=== PATIENT | male | born 1995 | race Caucasian/White ===

== ENCOUNTER 2017-05-20 14:50 | Emergency (ER) | payer SELFPAY ==
[2017-05-20] MEDS ORDERED: oxyCODONE/Acetamin 5/325 MG* TAB PO ONE (17:02)
[2017-05-20] MEDS ORDERED: oxyCODONE/Acetamin 5/325 MG* TAB ONE (17:04)
[2017-05-20 17:57] VITALS: BP 124/66
--- NOTE | 2017-05-20 19:00 | ED ---
Pino Barillas Elizabeth, scribed for Filipe Eden on 05/20/17 at 1701 . GI/ HPI - HPI Summary HPI Summary: The patient is a 21 year old male complaining of hemorrhoids for the last 6 days. Patient has tried using hemorrhoid cream and baking soda baths to alleviate the pain but says it has not helped. Patient has a history of hemorrhoids but says that they usually do not last this long and are not usually that painful. - History of Current Complaint Chief Complaint: EDRashSkinAbscess Time Seen by Provider: 05/20/17 16:47 Stated Complaint: POSSIBLE HEMORRHOID-7 DAYS Hx Obtained From: Patient Onset/Duration: Started Days Ago - started 6 days ago, Still Present Timing: Constant, Lasting Days Severity: Moderate Current Severity: Moderate Pain Intensity: 10 Location of Pain: Rectal Associated Signs and Symptoms: Positive: External Hemorrhoids Aggravating Factor(s): Movement - sitting Alleviating Factor(s): Nothing - Allergy/Home Medications Allergies/Adverse Reactions: Allergies Allergy/AdvReac Type Severity Reaction Status Date / Time No Known Allergies Allergy Verified 03/21/15 07:36 PMH/Surg Hx/FS Hx/Imm Hx GI History: Reports: Other GI Disorders - hemorrhoids EENT History: Denies: Hx Deafness Infectious Disease History: No Infectious Disease History: Denies: Traveled Outside the [place] in Last 30 Days - Family History Known Family History: Positive: Unknown - Social History Alcohol Use: Occasionally Substance Use Type: Reports: Marijuana Substance Use Comment - Amount & Last Used: every day Smoking Status (MU): Current Every Day Smoker Amount Used/How Often: < 1/2ppd Have You Smoked in the Last Year: Yes - smokes marijuana Review of Systems Negative: Epistaxis Positive: pain, other - hemorrhoids All Other Systems Reviewed And Are Negative: Yes Physical Exam - Summary Physical Exam Summary: Appearance: Well appearing, no pain distress Skin: warm, dry, reflects adequate perfusion Head/face: normal Eyes: EOMI, ZEYNEP ENT: normal Neck: supple, non-tender Respiratory: CTA, breath sounds present Cardiovascular: RRR, pulses symmetrical Abdomen: non-tender, soft Bowel: present, tender external hemorrhoids Musculoskeletal: normal, strength/ROM intact Neuro: normal, sensory motor intact, A&Ox3 Triage Information Reviewed: Yes Vital Signs On Initial Exam: Initial Vitals Temp Pulse Resp BP Pulse Ox 99.3 F 85 14 130/66 98 05/20/17 15:11 05/20/17 15:11 05/20/17 15:11 05/20/17 15:11 05/20/17 15:11 Vital Signs Reviewed: Yes Diagnostics - Vital Signs Vital Signs Temp Pulse Resp BP Pulse Ox 05/20/17 15:11 99.3 F 85 14 130/66 98 - Laboratory Lab Statement: Any lab studies that have been ordered have been reviewed, and results considered in the medical decision making process. GIGU Course/Dx - Course Course Of Treatment: Patient presented to the ED with external hemorrhoids. In the ED course the patient was given oxycodone. We discussed patient care with Dr. Mcdaniels who recommended the patient follow up with him elen. Patient will be discharged home with diagnosis of external hemorrhoids. The patient is agreeable with this plan. - Diagnoses Differential Diagnoses - Male: Hemorrhoids Provider Diagnoses: External hemorrhoids - Physician Notifications Discussed Care Of Patient With: Lj Mcdaniels Instructed by Provider To: Have Pt Call For Appt. - Dr. Mcdaniels recommended that patient follow up with him. Discharge - Sign-Out/Discharge Documenting (check all that apply): Discharge - discharge home - Discharge Plan Condition: Stable Disposition: HOME Prescriptions: Ibuprofen TAB* [Motrin TAB* 600 MG] 600 mg PO Q8H PRN #20 tab MDD 3 PRN Reason: Pain Patient Education Materials: Hemorrhoids (ED) Referrals: No Primary Care Phys,NOPCP [Primary Care Provider] - Lj Mcdaniels MD [Medical Doctor] - Additional Instructions: follow up with Dr. Mcdaniels. Return to ED for new or worsening symptoms. - Billing Disposition and Condition Condition: STABLE Disposition: HOME The documentation as recorded by the Pino cheng Elizabeth accurately reflects the service I personally performed and the decisions made by , Filipe Eden.
== END 2017-05-20 17:57 | disposition home or self-care (01) ==
LOC: ED 14:50
DX: K64.4 Residual hemorrhoidal skin tags (principal); F17.210 Nicotine dependence, cigarettes, uncomplicated
CPT/HCPCS: 99282; A9270-GY

== ENCOUNTER 2017-11-13 20:30 | Emergency (ER) | payer SELFPAY ==
[2017-11-13] MEDS ORDERED: Ondansetron ODT TAB* 4 MG PO ONE (21:05)
[2017-11-13] MEDS ORDERED: Acetaminophen TAB* 325 MG PO ONE (21:07)
--- NOTE | 2017-11-13 21:07 | ED ---
GI/ HPI - HPI Summary HPI Summary: This pt is a 21 y/o male, accompanied by his female cousin, presenting to [facility] for intermittent left flank pain for the past 1 month, worse today since approx 18:00. He states two hours [employer] pt began to have severe left flank pain, associated with nausea and vomiting. His last episode of emesis was at home [employer]. He notes he has been rubbing his left flank and it is now red. Pt denies fever, dysuria, hematuria, chest pain, SOB. Pt reports taking 3 shots of tequila for his pain with no relief. He denies hx of kidney stones. NKDA. - History of Current Complaint Chief Complaint: EDBackInjuryPain Stated Complaint: BACK PAIN/VOMITING Hx Obtained From: Patient Onset/Duration: Started Weeks Ago - 1 month, Still Present, Worse Since - today Timing: Intermittent, Lasting Weeks - 1 month Severity: Moderate Current Severity: Severe Pain Intensity: 10 Location of Pain: Flank - left Pain Characteristics: Sharp Associated Signs and Symptoms: Positive: Nausea, Vomiting, Flank Pain - left. Negative: Fever, Hematuria, Dysuria, Chills, UTI Symptoms Aggravating Factor(s): Nothing Alleviating Factor(s): Nothing - Allergy/Home Medications Allergies/Adverse Reactions: Allergies Allergy/AdvReac Type Severity Reaction Status Date / Time No Known Allergies Allergy Verified 11/13/17 20:42 PMH/Surg Hx/FS Hx/Imm Hx Previously Healthy: Yes Endocrine/Hematology History: Denies: Hx Diabetes GI History: Reports: Other GI Disorders - hemorrhoids History: Denies: Hx Kidney Stones Sensory History: Denies: Hx Deafness Infectious Disease History: No Infectious Disease History: Denies: Traveled Outside the [place] in Last 30 Days - Family History Known Family History: Positive: Other - anemia in his son - Social History Lives: With Family Alcohol Use: Occasionally Substance Use Type: Reports: Marijuana Substance Use Comment - Amount & Last Used: every day Smoking Status (MU): Current Every Day Smoker Amount Used/How Often: < 1/2ppd Have You Smoked in the Last Year: Yes - smokes marijuana Review of Systems Negative: Fever, Chills Negative: Chest Pain Negative: Shortness Of Breath Positive: Vomiting, Nausea Positive: flank pain - left. Negative: dysuria, hematuria Skin: Negative Neurological: Negative Psychological: Normal All Other Systems Reviewed And Are Negative: Yes Physical Exam - Summary Physical Exam Summary: Appearance: Well-appearing, severe pain distress, thin for his age. Writhing in pain and wants to lie down. Pt initially seen and examined in ED [facility] conference room Skin: Warm, color reflects adequate perfusion, diaphoretic Head: Normal Head/Face inspection, atraumatic Eyes: Conjunctiva clear ENT: Normal inspection Neck: Supple, no nodes, no JVD Respiratory: Lungs clear, normal breath sounds, no respiratory distress Cardio: RRR, No murmur, pulses normal, brisk capillary refill Abdomen: Soft, left flank tenderness, no masses, no guarding, no rebound, non distended Bowel sounds: Present Musculoskeletal: Strength Intact/ROM intact, no calf tenderness, no edema. Psychological: in severe pain, cooperative Neuro: Alert, muscle tone normal, no focal deficit Triage Information Reviewed: Yes Vital Signs On Initial Exam: Initial Vitals Temp Pulse Resp BP Pulse Ox 97.8 F 87 20 134/95 100 11/13/17 20:39 11/13/17 20:39 11/13/17 20:39 11/13/17 20:39 11/13/17 20:39 Vital Signs Reviewed: Yes Diagnostics - Vital Signs Vital Signs Temp Pulse Resp BP Pulse Ox 11/13/17 20:39 97.8 F 87 20 134/95 100 - Laboratory Lab Statement: Any lab studies that have been ordered have been reviewed, and results considered in the medical decision making process. - CT CT Abd/Pel CT Interpretation Completed By: Radiologist - no obstructing renal or ureteral calculi Re-Evaluation - Re-Evaluation First Eval Re-Evaluation Time: 23:15 Change: Improved Comment: Getting his blood drawn. Seen in [facility] emergency department as blood is being drawn. His cousin had to leave. He is in ED waiting room alone. Still with left flank pain. Advised we need urine. Advised that CT abd pelvis does not show cause for his pain. Advised he cannot have stronger pain medication at this time until he has bed in waiting room. Abd soft, no masses, nontender. Left flank pain on palpation. Less restless. GIGU Course/Dx - Course Course Of Treatment: Pt medications reviewed this visit. Pt is a 21 y/o male presenting to the ED for intermittent left flank pain for the past 1 month. In the ED course pt was given Zofran, and acetaminophen. CT abdomen/pelvis was ordered. No cause for pt's symptoms. No ureteral or renal calculi. Pt will be signed out to Dr. Biggs, pending disposition, awaiting labs and further evaluation. - Diagnoses Differential Diagnoses - Male: Gastritis, Pancreatitis, Pneumonia, Pyelonephritis, Ureteral Calculi, Urinary Tract Infection Provider Diagnoses: Left flank pain Discharge - Sign-Out/Discharge Documenting (check all that apply): Sign-Out Patient Signing out patient TO: Isidro Biggs - pending labs and further eval - Discharge Plan Condition: Stable Referrals: No Primary Care Phys,NOPCP [Primary Care Provider] - - Billing Disposition and Condition Condition: STABLE - Attestation Statements Document Initiated by Scribe: Yes Documenting Scribe: Diamond Alonso Provider For Whom Scribe is Documenting (Include Credential): Dr. Rosamaria Rojas MD Scribe Attestation: Diamond Barillas scribed for Dr. Rosamaria Rojas MD on 11/13/17 at 2347. Scribe Documentation Reviewed: Yes Provider Attestation: The documentation as recorded by the Diamond cheng accurately reflects the service I personally performed and the decisions made by me, Dr. Rosamaria Rojas MD
[2017-11-13] MEDS ORDERED: Ketorolac INJ* 30 MG/ML 1 ML VIAL IV PUSH ONE (21:41)
--- NOTE | 2017-11-13 22:33 | RAD ---
EXAM: CT Abdomen and Pelvis Without Intravenous Contrast CLINICAL HISTORY: 21 years old, male; Pain; Abdominal pain; Flank; Left; Additional info: Left flank pain TECHNIQUE: Axial computed tomography images of the abdomen and pelvis without intravenous contrast. All CT scans at this facility use at least one of these dose optimization techniques: automated exposure control; mA and/or kV adjustment per patient size (includes targeted exams where dose is matched to clinical indication); or iterative reconstruction. Coronal and sagittal reformatted images were created and reviewed. COMPARISON: No relevant prior studies available. FINDINGS: Lung bases: Normal. No mass. No consolidation. ABDOMEN: Liver: Normal. Normal size. No masses. Gallbladder and bile ducts: Normal. No radiopaque calculi. No ductal dilation. Pancreas: Normal. No ductal dilation. Spleen: Normal. No splenomegaly. Adrenals: Normal. No mass. Kidneys and ureters: No renal solid cortical lesions, calculi, or pelvocaliectasis. Stomach and bowel: Incompletely distended grossly normal stomach. Normal caliber small bowel. No colonic masses or segmental wall thickening. Nonobstructive bowel gas pattern. No air fluid levels. Normal volume of colonic stool. PELVIS: Appendix: Nonvisualized appendix with no secondary findings to suggest appendicitis. Bladder: Thin-walled bladder with no focal nodularity, perivesicular stranding, or calcifications. No stones. Reproductive: Normal sized prostate. Normal seminal vesicles. ABDOMEN and PELVIS: Intraperitoneal space: Normal. No pneumoperitoneum. No ascities. Bones/joints: No fractures. No suspicious bone lesions. Soft tissues: Normal. No hernias. Vasculature: Normal. No abdominal aortic aneurysm. Lymph nodes: Normal. No enlarged lymph nodes. IMPRESSION: No CT findings to correlate with patient's symptomatology. Specifically no obstructing renal or ureteral calculi.
[2017-11-14 00:30] LABS: ABS Basophils 0.1 10^3/ul (0-0.2); ABS Eosinophils 0 10^3/ul (0-0.6); ABS Lymphocytes 0.7 10^3/ul (1.0-4.8); ABS Monocytes 0.4 10^3/ul (0-0.8); ABS Neutrophils 11.6 10^3/ul (1.5-7.7); ABS Nucleated RBC 0 10^3/ul; Eosinophil % 0 % (0-6); Hematocrit 43 % (42-52); Hemoglobin 14.7 g/dl (14.0-18.0); Lymphocyte % 5.8 % (25-47); Mean Corpuscular HGB Conc 34 g/dl (31-36); Mean Corpuscular Hemoglobin 34 pg (27-31); Mean Corpuscular Volume 100 fL (80-94); Mean Platelet Volume 8.7 um3 (7.4-10.4); Nucleated Red Blood Cells % 0.1; Platelet Count 298 10^3/ul (150-450); Red Blood Count 4.34 10^6/ul (4.00-5.40); Red Cell Distribution Width 14 % (10.5-15); White Blood Count 12.8 10^3/ul (3.5-10.8)
[2017-11-14 01:00] LABS: EGFR Non-African American 144.5 (>60)
[2017-11-14] MEDS: NS 0.9% 1000 ML* 2,000 ML IV ONE ×2 (01:33→01:34)
--- NOTE | 2017-11-14 01:54 | ED ---
Progress - Progress Note Progress Note: Receiving sign out from Dr. Rojas. Low left back is very painful, and is made worse with laying flat or movement. The pain began 1 week ago, and he denies any injury. He also c/o chills and dark urine. Pt denies any fever or numbness/ weakness in his legs. Pt uses marijuana but denies any IV drug use. He is a smoker. Trigger point injection: Performed for pain. The patient's left mid to upper lumbar musculature and lower parathoracic musculature was cleaned with alcohol. It was injected with a total of 15 cc of 0.5% bupivacaine with epi. The medication was then massaged through the tissues. He had complete relief of his discomfort. He tolerated this well without complication. - EKG/XRAY/CT CT: CT A/P: No CT findings to correlate with patient's symptomatology. Re-Evaluation - Re-Evaluation First Eval Re-Evaluation Time: 04:38 Change: Improved Comment: Pain gone after trigger point injection. Course/Dx - Course Course Of Treatment: Appearance: Well appearing, no pain distress, thin. Skin: warm, dry, reflects adequate perfusion. Head/face: normal. Eyes: EOMI, ZEYNEP, bilateral pupils 2-3 mm. ENT: normal. Neck: supple, non-tender. Respiratory: CTA, breath sounds present. Cardiovascular: RRR, pulses symmetrical. Abdomen: upper lumbar and lower thoracic tenderness on the left side, soft. Bowel Sounds : present. Musculoskeletal: normal, strength/ROM intact. Neuro: normal, sensory motor intact, A&Ox3 - Diagnoses Provider Diagnoses: Lumbar strain Discharge - Sign-Out/Discharge Documenting (check all that apply): Patient Departure - Discharge, Receiving Sign-Out Receiving patient FROM: Rosamaria Rojas - Discharge Plan Condition: Improved Disposition: HOME Prescriptions: Cyclobenzaprine (NF) [Cyclobenzaprine 5 MG (NF)] 5 mg PO TID PRN #10 tab PRN Reason: muscle pain Naproxen [Naproxen 500 mg tab] 500 mg PO BID PRN #12 tablet.dr BUSTILLO Reason: Pain Patient Education Materials: Acute Low Back Pain (ED) Forms: *Work Release Referrals: [facility] [Outside] [facility] [Outside] Additional Instructions: Ice, range of motion/stretching exercises. Call chiropractor to schedule appointment. Primary care follow-up referral line and also referral here at the hospital have been given to you. Return if worse, numbness/weakness in the legs, occultly with bowel or bladder, worse or other concerns. - Billing Disposition and Condition Condition: IMPROVED Disposition: Home - Attestation Statements Document Initiated by Jazlynibe: Yes Documenting Scribe: Karma Austin Provider For Whom Scribe is Documenting (Include Credential): Isidro Biggs MD Scribe Attestation: IKarma, scribed for Isidro Biggs MD on 11/14/17 at 0636. Scribe Documentation Reviewed: Yes Provider Attestation: The documentation as recorded by the Karma cheng accurately reflects the service I personally performed and the decisions made by , Isidro Biggs MD
[2017-11-14] MEDS ORDERED: Morphine INJ** 4 MG/ML 1 ML CARPUJECT IV ONE (02:06)
[2017-11-14] MEDS ORDERED: Bupivacaine 0.5% W/EPI SDV* 30 ML VIAL INJ ONE ×2 (02:06→03:35)
[2017-11-14] MEDS ORDERED: Morphine INJ* 2 MG/ML 1 ML SYRINGE (TWO MG - NEW SYRINGE VERSION) ONE (02:16)
[2017-11-14] MEDS ORDERED: Morphine INJ* 2 MG/ML 1 ML SYRINGE (TWO MG - NEW SYRINGE VERSION) IV ONE (02:18)
[2017-11-14 02:42] LABS: Urine Appearance Turbid; Urine Blood Negative (Negative); Urine Color Yellow; Urine Ketones 1+ (Negative); Urine Protein 1+(30 mg/dL) (Negative); Urine Red Blood Cell 1+(3-5/hpf) (Absent); Urine Specific Gravity 1.023 (1.010-1.030); Urine Urobilinogen Negative (Negative); Urine White Blood Cell Trace(0-5/hpf) (Absent)
[2017-11-14 04:58] VITALS: BP 130/62
--- NOTE | 2017-11-14 08:22 | RAD ---
INDICATION: LEFT flank pain. COMPARISON: November 13, 2017 CT abdomen. TECHNIQUE: Dual energy PA and routine lateral views of the chest were obtained. REPORT: Elevated lung volumes. No focal pulmonary lesion, compelling alveolar consolidation, pleural effusion, pneumothorax. The heart, pulmonary vasculature, and mediastinal contours are unremarkable. Negative for free air beneath the diaphragm. IMPRESSION: #. Elevated lung volumes may reflect obstructive lung disease or simply exuberant inspiratory effort for examination. #. No evidence for acute intrathoracic disease. R0
== END 2017-11-14 04:57 | disposition home or self-care (01) ==
LOC: ED 20:30
DX: R10.9 Unspecified abdominal pain (principal); F17.210 Nicotine dependence, cigarettes, uncomplicated
CPT/HCPCS: 36415; 71046; 74176; 80053; 80307; 80320; 80329; 81003; 81015; 82150; 83605; 83690; 85025; 86140; 87086; 99283; A9270-GY; G0480; J1885; J2270